=== PATIENT | male | born 1990 | race Caucasian/White ===

== ENCOUNTER → 2017-11-19 | Outpatient (CLI) | payer OTHER ==
[~2017-11-19] MED LIST: CEPH500C PO
--- NOTE | 2017-11-19 09:09 | DIAGNOSTIC IMAGING REPORT ---
R KNEE 1 OR 2 VIEWS ROUTINE CLINICAL HISTORY: 27 years-old Male presenting with KNEE PAIN. TECHNIQUE: Frontal and lateral views of the right knee were obtained. COMPARISON: None. FINDINGS: No acute fracture or malalignment. No advanced degenerative change. Moderate knee joint effusion. No other radiographic soft tissue abnormality. IMPRESSION: 1. No acute osseous injury. 2. Moderate knee joint effusion. Electronically signed by: Colby Carbajal M.D. 11/19/2017 9:07 AM Dictated Date/Time: 11/19/2017 9:06 AM
== END | disposition home or self-care (01) ==
LOC: C.RAD1850 08:51
PROVIDERS: ATTEND Nurse Practitioner
DX: M25.561 Pain in right knee (principal); W19.XXXA Unspecified fall, initial encounter; M25.461 Effusion, right knee